=== PATIENT | male | born 1985 | race African-American/Black ===

== ENCOUNTER 2020-01-13 16:55 | Emergency (ER) | payer OTHER, SELFPAY ==
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
== END 2020-01-13 18:39 | disposition home or self-care (01) ==
LOC: ERS 16:55
DX: S16.1XXA Strain of muscle, fascia and tendon at neck level, initial encounter (principal); V49.40XA Driver injured in collision with unspecified motor vehicles in traffic accident, initial encounter
CPT/HCPCS: 70450; 72125

== ENCOUNTER 2021-08-08 08:11 | Emergency (ER) ==
[2021-08-08] MEDS ORDERED: HYDROcodone/Acetaminophen 10/325 mg Tablet ONE (08:59)
== END 2021-08-08 09:07 | disposition home or self-care (01) ==
LOC: ERS 08:11
DX: M62.830 Muscle spasm of back (principal)
CPT/HCPCS: 99283